=== PATIENT | male | born 1960 | race Caucasian/White ===

== ENCOUNTER 2018-12-03 16:50 | Emergency (ER) | payer OTHER, MEDICAID ==
[~2018-12-03] VITALS: Ht 162.6 cm; Wt 70.3 kg
[~2018-12-03 16:50] MED LIST: AMOX-423 PO; CALC-112 PO; FERR-57 PO; GUAI-818 PO; HYT1 PO; IBUP-2253 PO; LACT10SO66 PO; LEVE100S2 PO; LORA10TA2 PO; MULT-1170 PO; NEOM500T PO; OXYB5TAB11 PO
[2018-12-03 17:36] VITALS: BP_SYST 144
[2018-12-03 18:29] LABS: HEMOGLOBIN 12.2 g/dL (14.0-18.0); MEAN CORPUSCULAR HGB CONC 33 % (32-36)
[2018-12-03 18:41] LABS: HEMATOCRIT 37.3 % (36-54); MEAN CORPUSCULAR HEMOGLOBIN 34 pg (27-31); MEAN CORPUSCULAR VOLUME 103 fL (79.0-98.0); PLATELET COUNT (AUTO) 95 K/uL (130-430); RED BLOOD CELL COUNT(AUTO) 3.64 MIL/uL (4.2-6.2); RED CELL DISTRIBUTION WIDTH 14.1 % (9.0-15.0); WHITE BLOOD COUNT (AUTO) 6.7 K/uL (4.8-10.8)
[2018-12-03 18:55] LABS: BAND % (MANUAL) 7 % (0-6); BASOPHILS % (MANUAL) 0 % (0-2); EOSINOPHILS % (MANUAL) 0 % (0-7); LYMPHOCYTES % (MANUAL) 30 % (20-46); MONOCYTES % (MANUAL) 21 % (0-11)
[2018-12-03 19:12] LABS: CALCIUM 9.5 mg/dL (8.4-11.0); CREATININE 0.98 mg/dL (0.55-1.30); POTASSIUM 4.5 mmol/L (3.5-5.1)
[2018-12-03 19:27] LABS: TOTAL BILIRUBIN 0.3 mg/dL (0.0-1.0)
[2018-12-03 19:39] LABS: INR 1.1 (0.80-1.20)
--- NOTE | 2018-12-03 19:54 | NUR ---
Placed in room 2 . Placed on threat monitoring analyst, blood pressure machine and pulse oximeter. To gown for exam. Side rails up. Report given to Elise ORTEZ.Seizure precaution applied.
--- NOTE | 2018-12-03 20:00 | NUR ---
2000 - Assumed care of pt. Per caregiver, pt has 1 seizure a day, today he fell back and hit head on dresser. Pt has large 6 cm lac to back of head, bleeding controlled. Wound cleaned and stapler at bedside for doctor.
--- NOTE | 2018-12-03 21:01 | NUR ---
2101 - ER at bedside examining patient.
--- NOTE | 2018-12-03 21:10 | NUR ---
2109 - Patient given written and verbal discharge instructions and verbalizes understanding. ER MD discussed with patient the results and treatment provided. Patient in stable condition. ID arm band removed. Rx of motrin given. Patient educated on pain management and to follow up with PMD. Pain Scale 0. Opportunity for questions provided and answered. Medication side effect fact sheet provided.
[2018-12-03 21:11] VITALS: BP_SYST 144
== END 2018-12-03 21:11 | disposition home or self-care (01) ==
LOC: SED 16:50
DX: S01.01XA Laceration without foreign body of scalp, initial encounter (principal); R03.0 Elevated blood-pressure reading, without diagnosis of hypertension; N40.0 Benign prostatic hyperplasia without lower urinary tract symptoms; Z86.2 Personal history of diseases of the blood and blood-forming organs and certain disorders involving the immune mechanism; Z95.0 Presence of cardiac pacemaker; Z88.8 Allergy status to other drugs, medicaments and biological substances; Z79.899 Other long term (current) drug therapy; W01.198A Fall on same level from slipping, tripping and stumbling with subsequent striking against other object, initial encounter; Y93.89 Activity, other specified; Y92.89 Other specified places as the place of occurrence of the external cause; Y99.8 Other external cause status
CPT/HCPCS: 36415; 70450-TC; 80053; 85007; 85027; 85610-TC; 85730-TC; 99284

== ENCOUNTER 2019-05-22 09:03 | Emergency (ER) | payer OTHER, MEDICAID ==
[~2019-05-22] VITALS: Ht 162.6 cm; Wt 65.8 kg
[~2019-05-22 09:03] MED LIST changes: +GUAI-1081 PO; -GUAI-818 PO; -IBUP-2253 PO; +IBUP-2604 PO
[2019-05-22 09:04] VITALS: BP_SYST 121
[2019-05-22] MEDS: ONDANSETRON HCL 4 MG/2 ML VIAL IVP ONE (09:47)
[2019-05-22] MEDS: NACL 0.9% 1,000 ML IV ONE (09:47)
[2019-05-22] MEDS: DIPHENOXYLATE HCL/ATROP SULF 2.5 MG TAB PO ONE (09:48)
[2019-05-22 11:26] LABS: BASOPHILS % (AUTO) 0.4 % (0.0-2.0); EOSINOPHILS % (AUTO) 0.1 % (0.0-4.0); HEMATOCRIT 38.5 % (36-54); LYMPHOCYTES # (AUTO) 1.8 K/uL (1.0-5.5); LYMPHOCYTES % (AUTO) 16.6 % (20.5-51.5); MEAN CORPUSCULAR HEMOGLOBIN 34 pg (27-31); MEAN CORPUSCULAR HGB CONC 34 % (32-36); MEAN CORPUSCULAR VOLUME 101 fL (79.0-98.0); MONOCYTES # (AUTO) 1.9 K/uL (0.0-1.0); MONOCYTES % (AUTO) 17.9 % (1.7-9.3); NEUTROPHILS # (AUTO) 6.9 K/uL (1.8-7.7); PLATELET COUNT (AUTO) 79 K/uL (130-430); RED BLOOD CELL COUNT(AUTO) 3.81 MIL/uL (4.2-6.2); RED CELL DISTRIBUTION WIDTH 14.7 % (9.0-15.0); WHITE BLOOD COUNT (AUTO) 10.6 K/uL (4.8-10.8)
[2019-05-22 11:44] LABS: CALCIUM 8.9 mg/dL (8.4-11.0); CREATININE 0.77 mg/dL (0.55-1.30); POTASSIUM 3.1 mmol/L (3.5-5.1)
[2019-05-22 11:54] LABS: ALBUMIN 2.7 g/dL (3.4-4.8); TOTAL BILIRUBIN 0.8 mg/dL (0.0-1.0)
[2019-05-22] MEDS: POTASSIUM CHLORIDE 20 MEQ TAB.PRT.SR PO ONE (12:36)
[2019-05-22 12:59] VITALS: BP_SYST 107
== END 2019-05-22 13:02 | disposition home or self-care (01) ==
LOC: SED 09:03
DX: K52.9 Noninfective gastroenteritis and colitis, unspecified (principal); N40.0 Benign prostatic hyperplasia without lower urinary tract symptoms; Z86.2 Personal history of diseases of the blood and blood-forming organs and certain disorders involving the immune mechanism; Z88.8 Allergy status to other drugs, medicaments and biological substances; Z79.899 Other long term (current) drug therapy
CPT/HCPCS: 36415; 80053; 83690; 85025; 96361; 96374; 99283; J2405; J7030

== ENCOUNTER 2019-05-25 10:02 | Inpatient (IN) | payer OTHER, MEDICAID ==
[~2019-05-25] VITALS: Ht 167.6 cm; Wt 71.7 kg
[2019-05-25 10:36] VITALS: BP_SYST 133
[2019-05-25] MEDS ORDERED: PIPERACILLIN/TAZO 3.38 GM in NS 50 ML IV ONE (10:45)
[2019-05-25 11:15] LABS: BASOPHILS # (AUTO) 0.1 K/uL (0.0-0.2); BASOPHILS % (AUTO) 0.5 % (0.0-2.0); HEMATOCRIT 39.1 % (36-54); HEMOGLOBIN 13.1 g/dL (14.0-18.0); LYMPHOCYTES # (AUTO) 2.8 K/uL (1.0-5.5); MEAN CORPUSCULAR HEMOGLOBIN 34 pg (27-31); MEAN CORPUSCULAR HGB CONC 34 % (32-36); MEAN CORPUSCULAR VOLUME 101 fL (79.0-98.0); MONOCYTES # (AUTO) 2.7 K/uL (0.0-1.0); MONOCYTES % (AUTO) 13.5 % (1.7-9.3); NEUTROPHILS # (AUTO) 14.2 K/uL (1.8-7.7); PLATELET COUNT (AUTO) 117 K/uL (130-430); RED BLOOD CELL COUNT(AUTO) 3.88 MIL/uL (4.2-6.2); RED CELL DISTRIBUTION WIDTH 14.7 % (9.0-15.0); WHITE BLOOD COUNT (AUTO) 19.7 K/uL (4.8-10.8)
[2019-05-25 11:28] LABS: INR 1.2 (0.80-1.20)
[2019-05-25 11:29] LABS: CALCIUM 9.1 mg/dL (8.4-11.0); CREATININE 1.11 mg/dL (0.55-1.30); POTASSIUM 3.2 mmol/L (3.5-5.1)
[2019-05-25 11:38] LABS: ALBUMIN 2.5 g/dL (3.4-4.8)
[2019-05-25] MEDS ORDERED: PIPERACILLIN/TAZOBACTAM 3.375 GM/VIAL (ZOSYN) IV ONE (11:41)
[2019-05-25 12:21] LABS: BILIRUBIN,URINE 1+ (NEGATIVE); BLOOD, URINE 3+ (NEGATIVE); CLARITY/URINE CLOUDY (CLEAR); COLOR,URINE YELLOW (YELLOW); GLUCOSE,URINE NEGATIVE (NEGATIVE); KETONES,URINE TRACE (NEGATIVE); LEUKOCYTE ESTERASE ,URINE 2+ (NEGATIVE); NITRITE, URINE POSITIVE (NEGATIVE); PH,URINE 6.5 (5.0-8.0); PROTEIN URINE 3+ (NEGATIVE); UROBILINOGEN,URINE 0.2 (0.2-1.0)
[2019-05-25 12:27] LABS: BACTERIA,URINE MODERATE /HPF (None Seen); MUCUS,URINE None Seen /LPF (None Seen); WBC,URINE >100 /HPF (0-3); YEAST,URINE None Seen /HPF (None Seen)
[2019-05-25] MEDS ORDERED: POTASSIUM CHLORIDE 40 MEQ in NS 250 ML IV ONE (12:45)
[2019-05-25] MEDS ORDERED: NACL 0.9% 1,000 ML IV ONE (12:45)
[2019-05-25] MEDS ORDERED: IBUPROFEN 200 MG TABLET PO PRN (14:30)
[2019-05-25] MEDS ORDERED: FERROUS SULFATE 325 MG TABLET.DR PO ONE (14:30)
[2019-05-25] MEDS ORDERED: LORazepam 2 MG/ML VIAL IVP PRN (14:30)
[2019-05-25] MEDS: OXYBUTYNIN CHLORIDE 5 MG TABLET PO SCH ×2 (15:00→21:22)
[2019-05-25] MEDS: LR 1,000 ML IV SCH ×2 (15:00→23:33)
[2019-05-25] MEDS: LACTULOSE 20 GM/30 ML UDC PO SCH ×2 (15:00→21:00)
[2019-05-25] MEDS ORDERED: LACO200T2 PO (15:29)
[2019-05-25] MEDS ORDERED: CANN100S PO (15:29)
[2019-05-25] MEDS ORDERED: TAMS-11 PO (15:29)
[2019-05-25] MEDS ORDERED: DIVA500T4 PO (15:29)
[2019-05-25 16:32] VITALS: BP_SYST 128
[2019-05-25 19:00] VITALS: BP_SYST 136
[2019-05-25] MEDS: CANNABIDIOL PO SCH (21:00)
[2019-05-25] MEDS ORDERED: DIVALPROEX SODIUM 500 MG TAB.SR.24H (DEPAKOTE ER) PO ONE (21:00)
[2019-05-25] MEDS: LACOSAMIDE 100 MG TABLET PO SCH (21:22)
[2019-05-25] MEDS: LevETIRAcetam 500 MG/5 ML UDC ORAL LIQUID PO SCH (21:22)
[2019-05-25] MEDS: CALCIUM CARBONATE/VITAMIN D3 1 TAB TABLET PO SCH (21:23)
[2019-05-25] MEDS: TERAZOSIN HCL 1 MG CAPSULE (HYTRIN) PO SCH (21:23)
[2019-05-26 01:07] VITALS: BP_SYST 120
[2019-05-26 06:54] LABS: BASOPHILS % (AUTO) 0.1 % (0.0-2.0); HEMATOCRIT 32.6 % (36-54); HEMOGLOBIN 11.1 g/dL (14.0-18.0); LYMPHOCYTES # (AUTO) 2.6 K/uL (1.0-5.5); LYMPHOCYTES % (AUTO) 17.4 % (20.5-51.5); MEAN CORPUSCULAR HEMOGLOBIN 34 pg (27-31); MEAN CORPUSCULAR HGB CONC 34 % (32-36); MEAN CORPUSCULAR VOLUME 101 fL (79.0-98.0); MONOCYTES # (AUTO) 2.2 K/uL (0.0-1.0); MONOCYTES % (AUTO) 14.5 % (1.7-9.3); NEUTROPHILS # (AUTO) 10.2 K/uL (1.8-7.7); PLATELET COUNT (AUTO) 75 K/uL (130-430); RED BLOOD CELL COUNT(AUTO) 3.24 MIL/uL (4.2-6.2); RED CELL DISTRIBUTION WIDTH 14.7 % (9.0-15.0)
[2019-05-26 07:25] LABS: ALBUMIN 1.9 g/dL (3.4-4.8); CALCIUM 8.8 mg/dL (8.4-11.0); CREATININE 0.86 mg/dL (0.55-1.30); FREE T4 (FREE THYROXINE) 1.2 ng/dl (0.8-1.5); TOTAL BILIRUBIN 0.6 mg/dL (0.0-1.0)
[2019-05-26 08:00] VITALS: BP_SYST 110
[2019-05-26] MEDS: CANNABIDIOL PO SCH (09:00)
[2019-05-26] MEDS: FERROUS SULFATE 325 MG TABLET.DR PO SCH (10:15)
[2019-05-26] MEDS: MULTIVITS,CA,MINERALS/IRON/FA 1 TABLET PO SCH (10:15)
[2019-05-26] MEDS: LACOSAMIDE 100 MG TABLET PO SCH ×2 (10:15→20:39)
[2019-05-26] MEDS: LORATADINE 10 MG TABLET PO SCH (10:16)
[2019-05-26] MEDS: OXYBUTYNIN CHLORIDE 5 MG TABLET PO SCH ×3 (10:16→20:37)
[2019-05-26] MEDS: TAMSULOSIN HCL 0.4 MG CAP PO SCH (10:16)
[2019-05-26] MEDS: LACTULOSE 20 GM/30 ML UDC PO SCH ×3 (10:21→20:37)
[2019-05-26] MEDS: CALCIUM CARBONATE/VITAMIN D3 1 TAB TABLET PO SCH ×2 (10:22→20:38)
[2019-05-26] MEDS: LevETIRAcetam 500 MG/5 ML UDC ORAL LIQUID PO SCH ×2 (10:22→20:38)
[2019-05-26 11:20] VITALS: BP_SYST 107
[2019-05-26 11:32] LABS: THYROID STIMULATING HORMONE 2.13 uIu/mL (0.36-3.74)
[2019-05-26] MEDS ORDERED: PANTOPRAZOLE SODIUM 40 MG TAB PO ONE (12:15)
[2019-05-26] MEDS: KCL 40 mEq in D5W 1000 mL 1,000 ML IV SCH (13:00)
[2019-05-26 17:53] VITALS: BP_SYST 111
[2019-05-26 19:00] VITALS: BP_SYST 137
[2019-05-26 20:00] VITALS: BP_SYST 137
[2019-05-26] MEDS: DIVALPROEX SODIUM 500 MG TAB.SR.24H (DEPAKOTE ER) PO SCH ×2 (20:36→20:39)
[2019-05-26] MEDS: PANTOPRAZOLE SODIUM 40 MG TAB PO SCH (20:38)
[2019-05-26] MEDS: TERAZOSIN HCL 1 MG CAPSULE (HYTRIN) PO SCH (20:38)
[2019-05-26] MEDS: DIVALPROEX SODIUM 500 MG TABLET( DEPAKOTE) PO SCH (21:13)
[2019-05-27 00:59] VITALS: BP_SYST 124
[2019-05-27] MEDS: KCL 40 mEq in D5W 1000 mL 1,000 ML IV SCH ×3 (02:18→19:22)
[2019-05-27 07:58] LABS: BASOPHILS # (AUTO) 0.1 K/uL (0.0-0.2); BASOPHILS % (AUTO) 0.4 % (0.0-2.0); EOSINOPHILS % (AUTO) 0.1 % (0.0-4.0); HEMATOCRIT 31.3 % (36-54); HEMOGLOBIN 10.7 g/dL (14.0-18.0); LYMPHOCYTES # (AUTO) 2.3 K/uL (1.0-5.5); LYMPHOCYTES % (AUTO) 17.2 % (20.5-51.5); MEAN CORPUSCULAR HEMOGLOBIN 34 pg (27-31); MEAN CORPUSCULAR HGB CONC 34 % (32-36); MEAN CORPUSCULAR VOLUME 100 fL (79.0-98.0); MONOCYTES # (AUTO) 1.9 K/uL (0.0-1.0); MONOCYTES % (AUTO) 13.7 % (1.7-9.3); NEUTROPHILS # (AUTO) 9.3 K/uL (1.8-7.7); NEUTROPHILS % (AUTO) 68.6 % (40.0-70.0); PLATELET COUNT (AUTO) 70 K/uL (130-430); RED BLOOD CELL COUNT(AUTO) 3.12 MIL/uL (4.2-6.2); RED CELL DISTRIBUTION WIDTH 14.7 % (9.0-15.0); WHITE BLOOD COUNT (AUTO) 13.5 K/uL (4.8-10.8)
[2019-05-27 08:00] VITALS: BP_SYST 146
[2019-05-27 08:21] LABS: ALBUMIN 1.7 g/dL (3.4-4.8); CALCIUM 8.2 mg/dL (8.4-11.0); CREATININE 0.77 mg/dL (0.55-1.30); TOTAL BILIRUBIN 0.5 mg/dL (0.0-1.0)
[2019-05-27 08:23] LABS: POTASSIUM 2.8 mmol/L (3.5-5.1)
[2019-05-27] MEDS: LACOSAMIDE 100 MG TABLET PO SCH ×2 (08:58→20:49)
[2019-05-27] MEDS: MULTIVITS,CA,MINERALS/IRON/FA 1 TABLET PO SCH (08:58)
[2019-05-27] MEDS: PANTOPRAZOLE SODIUM 40 MG TAB PO SCH ×2 (08:58→20:50)
[2019-05-27] MEDS: LORATADINE 10 MG TABLET PO SCH (08:58)
[2019-05-27] MEDS: TAMSULOSIN HCL 0.4 MG CAP PO SCH (08:59)
[2019-05-27] MEDS: LACTULOSE 20 GM/30 ML UDC PO SCH ×3 (08:59→20:49)
[2019-05-27] MEDS: CALCIUM CARBONATE/VITAMIN D3 1 TAB TABLET PO SCH ×2 (08:59→20:49)
[2019-05-27] MEDS: FERROUS SULFATE 325 MG TABLET.DR PO SCH (08:59)
[2019-05-27] MEDS: OXYBUTYNIN CHLORIDE 5 MG TABLET PO SCH ×3 (08:59→20:50)
[2019-05-27] MEDS: CANNABIDIOL PO SCH ×2 (09:00→20:52)
[2019-05-27] MEDS: DIVALPROEX SODIUM 500 MG TABLET( DEPAKOTE) PO SCH ×2 (09:03→20:49)
[2019-05-27] MEDS: LevETIRAcetam 500 MG/5 ML UDC ORAL LIQUID PO SCH ×2 (09:03→21:00)
[2019-05-27] MEDS ORDERED: POTASSIUM CHLORIDE 20 MEQ TAB.PRT.SR PO ONE (10:00)
[2019-05-27] MEDS ORDERED: POTASSIUM CHLORIDE 40 MEQ, LIDOCAINE JECT 2% PF 100 MG 50 MG in NS 250 ML IV ONE (10:30)
[2019-05-27 12:00] VITALS: BP_SYST 141
[2019-05-27 16:59] VITALS: BP_SYST 136
[2019-05-27] MEDS: cefTRIAXone 1 GM in D5W 50 ML IV SCH (19:16)
[2019-05-27 20:00] VITALS: BP_SYST 136
[2019-05-27] MEDS: TERAZOSIN HCL 1 MG CAPSULE (HYTRIN) PO SCH (20:50)
[2019-05-27] MEDS: POTASSIUM CHLORIDE 20 MEQ TAB.PRT.SR PO SCH (20:51)
[2019-05-27] MEDS ORDERED: levETIRAcetam 500 MG TABLET ONE (20:55)
[2019-05-28 02:18] VITALS: BP_SYST 136
[2019-05-28 06:56] LABS: BASOPHILS # (AUTO) 0.1 K/uL (0.0-0.2); BASOPHILS % (AUTO) 0.4 % (0.0-2.0); EOSINOPHILS % (AUTO) 0.2 % (0.0-4.0); HEMATOCRIT 31.9 % (36-54); HEMOGLOBIN 10.7 g/dL (14.0-18.0); LYMPHOCYTES # (AUTO) 3.6 K/uL (1.0-5.5); LYMPHOCYTES % (AUTO) 27.8 % (20.5-51.5); MEAN CORPUSCULAR HEMOGLOBIN 34 pg (27-31); MEAN CORPUSCULAR HGB CONC 34 % (32-36); MEAN CORPUSCULAR VOLUME 102 fL (79.0-98.0); MONOCYTES # (AUTO) 1.9 K/uL (0.0-1.0); MONOCYTES % (AUTO) 14.6 % (1.7-9.3); NEUTROPHILS # (AUTO) 7.4 K/uL (1.8-7.7); RED BLOOD CELL COUNT(AUTO) 3.13 MIL/uL (4.2-6.2); RED CELL DISTRIBUTION WIDTH 14.9 % (9.0-15.0)
[2019-05-28 07:11] LABS: TOTAL IRON BIND. CAPACITY 108 ug/dL (250-450)
[2019-05-28 07:16] LABS: ALBUMIN 1.6 g/dL (3.4-4.8); CALCIUM 8.2 mg/dL (8.4-11.0); CREATININE 0.8 mg/dL (0.55-1.30); POTASSIUM 4.1 mmol/L (3.5-5.1); TOTAL BILIRUBIN 0.6 mg/dL (0.0-1.0)
[2019-05-28 08:03] LABS: PLATELET COUNT (AUTO) 59 K/uL (130-430)
[2019-05-28 08:11] VITALS: BP_SYST 126
[2019-05-28 08:16] VITALS: BP_SYST 126
[2019-05-28] MEDS: FERROUS SULFATE 325 MG TABLET.DR PO SCH ×2 (09:00→09:48)
[2019-05-28] MEDS: LACTULOSE 20 GM/30 ML UDC PO SCH ×3 (09:00→14:16)
[2019-05-28] MEDS: LORATADINE 10 MG TABLET PO SCH ×2 (09:00→09:51)
[2019-05-28] MEDS: POTASSIUM CHLORIDE 20 MEQ TAB.PRT.SR PO SCH (09:28)
[2019-05-28] MEDS: CALCIUM CARBONATE/VITAMIN D3 1 TAB TABLET PO SCH ×2 (09:30→22:12)
[2019-05-28] MEDS: CANNABIDIOL PO SCH ×2 (09:34→22:10)
[2019-05-28] MEDS: PANTOPRAZOLE SODIUM 40 MG TAB PO SCH ×2 (09:35→22:11)
[2019-05-28] MEDS: MULTIVITS,CA,MINERALS/IRON/FA 1 TABLET PO SCH (09:36)
[2019-05-28] MEDS: DIVALPROEX SODIUM 500 MG TABLET( DEPAKOTE) PO SCH ×2 (09:47→22:11)
[2019-05-28] MEDS: LACOSAMIDE 100 MG TABLET PO SCH ×2 (09:50→22:11)
[2019-05-28] MEDS: TAMSULOSIN HCL 0.4 MG CAP PO SCH (09:51)
[2019-05-28] MEDS: OXYBUTYNIN CHLORIDE 5 MG TABLET PO SCH ×3 (10:06→22:11)
[2019-05-28] MEDS: LevETIRAcetam 500 MG/5 ML UDC ORAL LIQUID PO SCH ×2 (10:34→22:09)
[2019-05-28] MEDS: KCL 40 mEq in D5W 1000 mL 1,000 ML IV SCH (11:27)
[2019-05-28 12:44] VITALS: BP_SYST 122
[2019-05-28 16:53] VITALS: BP_SYST 127
[2019-05-28] MEDS: cefTRIAXone 1 GM in D5W 50 ML IV SCH (17:38)
[2019-05-28 20:00] VITALS: BP_SYST 122
[2019-05-28] MEDS: TERAZOSIN HCL 1 MG CAPSULE (HYTRIN) PO SCH (22:11)
[2019-05-28] MEDS: NITROFURANTOIN MONOHYD/M-CRYST 100 MG CAPSULE PO SCH (22:12)
[2019-05-29] MEDS: KCL 40 mEq in D5W 1000 mL 1,000 ML IV SCH (00:50)
[2019-05-29 01:40] VITALS: BP_SYST 107
[2019-05-29 07:19] LABS: BASOPHILS % (AUTO) 0.3 % (0.0-2.0); EOSINOPHILS # (AUTO) 0.1 K/uL (0.0-0.4); EOSINOPHILS % (AUTO) 0.9 % (0.0-4.0); HEMATOCRIT 32.6 % (36-54); HEMOGLOBIN 10.9 g/dL (14.0-18.0); LYMPHOCYTES # (AUTO) 3.1 K/uL (1.0-5.5); LYMPHOCYTES % (AUTO) 26.8 % (20.5-51.5); MEAN CORPUSCULAR HEMOGLOBIN 34 pg (27-31); MEAN CORPUSCULAR HGB CONC 34 % (32-36); MEAN CORPUSCULAR VOLUME 102 fL (79.0-98.0); MONOCYTES # (AUTO) 2.1 K/uL (0.0-1.0); MONOCYTES % (AUTO) 18.4 % (1.7-9.3); NEUTROPHILS # (AUTO) 6.3 K/uL (1.8-7.7); NEUTROPHILS % (AUTO) 53.6 % (40.0-70.0); PLATELET COUNT (AUTO) 51 K/uL (130-430); RED BLOOD CELL COUNT(AUTO) 3.19 MIL/uL (4.2-6.2); RED CELL DISTRIBUTION WIDTH 14.7 % (9.0-15.0); WHITE BLOOD COUNT (AUTO) 11.7 K/uL (4.8-10.8)
[2019-05-29 08:26] VITALS: BP_SYST 115
[2019-05-29] MEDS: DIVALPROEX SODIUM 500 MG TABLET( DEPAKOTE) PO SCH ×2 (08:52→20:56)
[2019-05-29] MEDS: LACOSAMIDE 100 MG TABLET PO SCH ×2 (08:53→20:56)
[2019-05-29] MEDS: NITROFURANTOIN MONOHYD/M-CRYST 100 MG CAPSULE PO SCH ×2 (08:53→20:55)
[2019-05-29] MEDS: LevETIRAcetam 500 MG/5 ML UDC ORAL LIQUID PO SCH ×2 (08:54→20:55)
[2019-05-29] MEDS: OXYBUTYNIN CHLORIDE 5 MG TABLET PO SCH ×3 (08:54→20:56)
[2019-05-29] MEDS ORDERED: POTASSIUM CHLORIDE 20 MEQ TAB.PRT.SR PO SCH (09:00)
[2019-05-29] MEDS: CALCIUM CARBONATE/VITAMIN D3 1 TAB TABLET PO SCH ×2 (09:00→20:56)
[2019-05-29] MEDS: TAMSULOSIN HCL 0.4 MG CAP PO SCH (09:00)
[2019-05-29] MEDS: CANNABIDIOL PO SCH ×2 (09:18→20:57)
[2019-05-29 09:39] LABS: POTASSIUM 5.4 mmol/L (3.5-5.1)
[2019-05-29 09:40] LABS: CALCIUM 8.3 mg/dL (8.4-11.0); CREATININE 0.7 mg/dL (0.55-1.30)
[2019-05-29 12:47] VITALS: BP_SYST 102
[2019-05-29 14:36] LABS: CALCIUM 8.4 mg/dL (8.4-11.0); CREATININE 0.73 mg/dL (0.55-1.30); POTASSIUM 5.2 mmol/L (3.5-5.1)
[2019-05-29] MEDS: PANTOPRAZOLE SODIUM 40 MG TAB PO SCH ×2 (15:28→20:56)
[2019-05-29] MEDS: FERROUS SULFATE 325 MG TABLET.DR PO SCH (15:28)
[2019-05-29] MEDS: LORATADINE 10 MG TABLET PO SCH (15:28)
[2019-05-29] MEDS: MULTIVITS,CA,MINERALS/IRON/FA 1 TABLET PO SCH (15:29)
[2019-05-29] MEDS ORDERED: MEGESTROL ACETATE 400 MG/10 ML UDC PO ONE (16:30)
[2019-05-29 16:55] VITALS: BP_SYST 92
[2019-05-29] MEDS: D5/0.45 NS 1,000 ML IV SCH (17:06)
[2019-05-29] MEDS: cefTRIAXone 1 GM in D5W 50 ML IV SCH (17:36)
[2019-05-29 20:00] VITALS: BP_SYST 114
[2019-05-29] MEDS: TERAZOSIN HCL 1 MG CAPSULE (HYTRIN) PO SCH (20:57)
[2019-05-30 00:26] VITALS: BP_SYST 99
[2019-05-30 06:41] LABS: BASOPHILS % (AUTO) 0.3 % (0.0-2.0); EOSINOPHILS # (AUTO) 0.1 K/uL (0.0-0.4); HEMATOCRIT 31.2 % (36-54); HEMOGLOBIN 10.6 g/dL (14.0-18.0); LYMPHOCYTES % (AUTO) 28.9 % (20.5-51.5); MEAN CORPUSCULAR HEMOGLOBIN 35 pg (27-31); MEAN CORPUSCULAR HGB CONC 34 % (32-36); MEAN CORPUSCULAR VOLUME 102 fL (79.0-98.0); MONOCYTES # (AUTO) 1.4 K/uL (0.0-1.0); MONOCYTES % (AUTO) 13.8 % (1.7-9.3); NEUTROPHILS # (AUTO) 5.8 K/uL (1.8-7.7); RED BLOOD CELL COUNT(AUTO) 3.06 MIL/uL (4.2-6.2); RED CELL DISTRIBUTION WIDTH 14.7 % (9.0-15.0); WHITE BLOOD COUNT (AUTO) 10.3 K/uL (4.8-10.8)
[2019-05-30] MEDS: D5/0.45 NS 1,000 ML IV SCH ×2 (06:51→21:00)
[2019-05-30 06:55] LABS: ALANINE AMINOTRANSFERASE 10 U/L (12-78); ALBUMIN 1.6 g/dL (3.4-4.8); ASPARTATE AMINOTRANSFERASE 14 U/L (10-37); CHLORIDE 111 mmol/L (98-107); CREATININE 0.75 mg/dL (0.55-1.30); GLUCOSE 105 mg/dL (70-99); POTASSIUM 4.8 mmol/L (3.5-5.1); TOTAL BILIRUBIN 0.5 mg/dL (0.0-1.0); UREA NITROGEN, BLOOD 19 mg/dL (8-21)
[2019-05-30 06:57] LABS: GFR AFRICAN AMERICAN 137 mL/min (>90)
[2019-05-30 07:04] LABS: CALCIUM 8.3 mg/dL (8.4-11.0); SODIUM SERUM 141 mmol/L (136-145)
[2019-05-30 07:07] LABS: ANION GAP < 3 (5-15)
[2019-05-30 07:15] LABS: PLATELET COUNT (AUTO) 46 K/uL (130-430)
[2019-05-30 07:52] VITALS: BP_SYST 105
[2019-05-30] MEDS: LevETIRAcetam 500 MG/5 ML UDC ORAL LIQUID PO SCH ×2 (09:00→20:50)
[2019-05-30] MEDS: CANNABIDIOL PO SCH ×3 (09:00→18:10)
[2019-05-30] MEDS: MEGESTROL ACETATE 400 MG/10 ML UDC PO SCH (10:12)
[2019-05-30] MEDS: CALCIUM CARBONATE/VITAMIN D3 1 TAB TABLET PO SCH ×2 (10:12→20:48)
[2019-05-30] MEDS: NITROFURANTOIN MONOHYD/M-CRYST 100 MG CAPSULE PO SCH ×2 (10:12→20:50)
[2019-05-30] MEDS: PANTOPRAZOLE SODIUM 40 MG TAB PO SCH ×2 (10:12→20:48)
[2019-05-30] MEDS: OXYBUTYNIN CHLORIDE 5 MG TABLET PO SCH ×3 (10:13→20:48)
[2019-05-30] MEDS: LACOSAMIDE 100 MG TABLET PO SCH ×2 (10:13→20:48)
[2019-05-30] MEDS: FERROUS SULFATE 325 MG TABLET.DR PO SCH (10:13)
[2019-05-30] MEDS: MULTIVITS,CA,MINERALS/IRON/FA 1 TABLET PO SCH (10:13)
[2019-05-30] MEDS: TAMSULOSIN HCL 0.4 MG CAP PO SCH ×2 (10:13→20:49)
[2019-05-30] MEDS: DIVALPROEX SODIUM 500 MG TABLET( DEPAKOTE) PO SCH ×2 (10:14→20:48)
[2019-05-30] MEDS: LORATADINE 10 MG TABLET PO SCH (10:15)
[2019-05-30] MEDS ORDERED: CIPROFLOXACIN HCL 500 MG TABLET PO ONE ×2 (11:15→12:15)
[2019-05-30 11:44] VITALS: BP_SYST 115
[2019-05-30] MEDS ORDERED: TAMSULOSIN HCL 0.4 MG CAP PO ONE (12:00)
[2019-05-30] MEDS ORDERED: OXYBUTYNIN CHLORIDE 5 MG TABLET PO ONE (12:15)
[2019-05-30] MEDS ORDERED: DIVALPROEX SODIUM 500 MG TABLET( DEPAKOTE) PO ONE (12:15)
[2019-05-30] MEDS ORDERED: LevETIRAcetam 500 MG/5 ML UDC ORAL LIQUID PO ONE (12:15)
[2019-05-30] MEDS ORDERED: NITROFURANTOIN MONOHYD/M-CRYST 100 MG CAPSULE PO ONE (12:15)
[2019-05-30] MEDS ORDERED: CANNABIDIOL PO ONE (12:15)
[2019-05-30] MEDS ORDERED: CALCIUM CARBONATE/VITAMIN D3 1 TAB TABLET PO ONE (12:15)
[2019-05-30] MEDS ORDERED: MEGESTROL ACETATE 400 MG/10 ML UDC PO ONE (12:15)
[2019-05-30] MEDS ORDERED: PANTOPRAZOLE SODIUM 40 MG TAB PO ONE (12:15)
[2019-05-30] MEDS ORDERED: LORATADINE 10 MG TABLET PO ONE (12:15)
[2019-05-30] MEDS ORDERED: FERROUS SULFATE 325 MG TABLET.DR PO ONE (12:15)
[2019-05-30] MEDS ORDERED: MULTIVITS,CA,MINERALS/IRON/FA 1 TABLET PO ONE (12:15)
[2019-05-30] MEDS ORDERED: LACOSAMIDE 100 MG TABLET PO ONE (12:15)
[2019-05-30 16:20] VITALS: BP_SYST 109
[2019-05-30 16:37] LABS: RETICULOCYTE COUNT 0.9 % (0.5-1.5)
[2019-05-30 17:02] LABS: C-REACTIVE PROTEIN QUANT 5.7 mg/dL (0-0.5)
[2019-05-30 18:04] LABS: INR 1.1 (0.80-1.20); PROTHROMBIN TIME 11.5 SECS (9.5-12.5)
[2019-05-30 19:50] VITALS: BP_SYST 113
[2019-05-30] MEDS: TERAZOSIN HCL 1 MG CAPSULE (HYTRIN) PO SCH (20:49)
[2019-05-30] MEDS ORDERED: COMMUNICATION ORDER XX ONE (21:00)
[2019-05-30] MEDS: CIPROFLOXACIN HCL 500 MG TABLET PO SCH (21:00)
[2019-05-31 00:58] VITALS: BP_SYST 100
[2019-05-31 01:41] LABS: BILIRUBIN,URINE NEGATIVE (NEGATIVE); BLOOD, URINE NEGATIVE (NEGATIVE); CLARITY/URINE CLEAR (CLEAR); COLOR,URINE YELLOW (YELLOW); GLUCOSE,URINE NEGATIVE (NEGATIVE); KETONES,URINE TRACE (NEGATIVE); LEUKOCYTE ESTERASE ,URINE 1+ (NEGATIVE); NITRITE, URINE NEGATIVE (NEGATIVE); PROTEIN URINE NEGATIVE (NEGATIVE)
[2019-05-31 01:52] LABS: BACTERIA,URINE FEW /HPF (None Seen); RBC,URINE 0-3 /HPF (0-3)
[2019-05-31 07:06] LABS: HEPATITIS A AB, IgM Negative (Negative); HEPATITIS B CORE AB, IgM Negative (Negative); HEPATITIS B SURFACE AG Negative (Negative)
[2019-05-31 08:29] VITALS: BP_SYST 111
[2019-05-31 08:33] LABS: FOLATE (FOLIC ACID) 12.7 ng/mL (>3.0)
[2019-05-31] MEDS: NITROFURANTOIN MONOHYD/M-CRYST 100 MG CAPSULE PO SCH (09:52)
[2019-05-31] MEDS: CALCIUM CARBONATE/VITAMIN D3 1 TAB TABLET PO SCH ×2 (09:52→23:11)
[2019-05-31] MEDS: LACOSAMIDE 100 MG TABLET PO SCH ×2 (09:52→23:10)
[2019-05-31] MEDS: OXYBUTYNIN CHLORIDE 5 MG TABLET PO SCH ×3 (09:52→23:10)
[2019-05-31] MEDS: MULTIVITS,CA,MINERALS/IRON/FA 1 TABLET PO SCH (09:55)
[2019-05-31] MEDS: LORATADINE 10 MG TABLET PO SCH (09:56)
[2019-05-31] MEDS: DIVALPROEX SODIUM 500 MG TABLET( DEPAKOTE) PO SCH ×2 (09:56→23:09)
[2019-05-31] MEDS: FERROUS SULFATE 325 MG TABLET.DR PO SCH (09:56)
[2019-05-31] MEDS: CIPROFLOXACIN HCL 500 MG TABLET PO SCH ×2 (09:56→23:10)
[2019-05-31] MEDS: TAMSULOSIN HCL 0.4 MG CAP PO SCH ×2 (09:56→23:11)
[2019-05-31] MEDS: PANTOPRAZOLE SODIUM 40 MG TAB PO SCH ×2 (09:56→23:03)
[2019-05-31] MEDS: MEGESTROL ACETATE 400 MG/10 ML UDC PO SCH (09:56)
[2019-05-31] MEDS: LevETIRAcetam 500 MG/5 ML UDC ORAL LIQUID PO SCH ×2 (09:57→23:52)
[2019-05-31 11:22] VITALS: BP_SYST 132
[2019-05-31] MEDS: D5/0.45 NS 1,000 ML IV SCH (12:47)
[2019-05-31 14:08] LABS: BASOPHILS % (AUTO) 0.3 % (0.0-2.0); EOSINOPHILS % (AUTO) 0.4 % (0.0-4.0); HEMATOCRIT 34.1 % (36-54); HEMOGLOBIN 11.4 g/dL (14.0-18.0); LYMPHOCYTES # (AUTO) 3.3 K/uL (1.0-5.5); LYMPHOCYTES % (AUTO) 29.6 % (20.5-51.5); MEAN CORPUSCULAR HEMOGLOBIN 34 pg (27-31); MEAN CORPUSCULAR HGB CONC 34 % (32-36); MEAN CORPUSCULAR VOLUME 102 fL (79.0-98.0); MONOCYTES # (AUTO) 1.2 K/uL (0.0-1.0); MONOCYTES % (AUTO) 10.6 % (1.7-9.3); NEUTROPHILS # (AUTO) 6.6 K/uL (1.8-7.7); NEUTROPHILS % (AUTO) 59.1 % (40.0-70.0); PLATELET COUNT (AUTO) 68 K/uL (130-430); RED BLOOD CELL COUNT(AUTO) 3.36 MIL/uL (4.2-6.2); RED CELL DISTRIBUTION WIDTH 14.7 % (9.0-15.0); WHITE BLOOD COUNT (AUTO) 11.2 K/uL (4.8-10.8)
[2019-05-31 14:12] LABS: CHLORIDE 111 mmol/L (98-107); CREATININE 0.86 mg/dL (0.55-1.30); GLUCOSE 106 mg/dL (70-99); POTASSIUM 4.3 mmol/L (3.5-5.1); SODIUM SERUM 138 mmol/L (136-145); UREA NITROGEN, BLOOD 23 mg/dL (8-21)
[2019-05-31 14:21] LABS: GFR AFRICAN AMERICAN 117 mL/min (>90)
[2019-05-31 14:22] LABS: ANION GAP < 3 (5-15)
[2019-05-31 14:24] LABS: CALCIUM 8.6 mg/dL (8.4-11.0)
[2019-05-31 15:20] VITALS: BP_SYST 124
[2019-05-31 20:45] VITALS: BP_SYST 103
[2019-05-31] MEDS: TERAZOSIN HCL 1 MG CAPSULE (HYTRIN) PO SCH (23:08)
[2019-05-31] MEDS: CANNABIDIOL PO SCH (23:52)
[2019-06-01 00:34] VITALS: BP_SYST 111
[2019-06-01] MEDS: D5/0.45 NS 1,000 ML IV SCH ×2 (01:42→16:32)
[2019-06-01 04:15] VITALS: BP_SYST 116
[2019-06-01 06:09] LABS: BASOPHILS % (AUTO) 0.4 % (0.0-2.0); EOSINOPHILS # (AUTO) 0.1 K/uL (0.0-0.4); EOSINOPHILS % (AUTO) 0.6 % (0.0-4.0); HEMATOCRIT 29.1 % (36-54); HEMOGLOBIN 9.8 g/dL (14.0-18.0); LYMPHOCYTES # (AUTO) 3.2 K/uL (1.0-5.5); LYMPHOCYTES % (AUTO) 32.6 % (20.5-51.5); MEAN CORPUSCULAR HEMOGLOBIN 34 pg (27-31); MEAN CORPUSCULAR HGB CONC 34 % (32-36); MEAN CORPUSCULAR VOLUME 102 fL (79.0-98.0); MONOCYTES # (AUTO) 1.7 K/uL (0.0-1.0); MONOCYTES % (AUTO) 17.2 % (1.7-9.3); NEUTROPHILS # (AUTO) 4.8 K/uL (1.8-7.7); NEUTROPHILS % (AUTO) 49.2 % (40.0-70.0); PLATELET COUNT (AUTO) 78 K/uL (130-430); RED BLOOD CELL COUNT(AUTO) 2.86 MIL/uL (4.2-6.2); RED CELL DISTRIBUTION WIDTH 14.9 % (9.0-15.0); WHITE BLOOD COUNT (AUTO) 9.8 K/uL (4.8-10.8)
[2019-06-01 06:23] LABS: ALANINE AMINOTRANSFERASE 11 U/L (12-78); ALBUMIN 1.7 g/dL (3.4-4.8); ASPARTATE AMINOTRANSFERASE 18 U/L (10-37); CALCIUM 8.3 mg/dL (8.4-11.0); CHLORIDE 111 mmol/L (98-107); CREATININE 0.84 mg/dL (0.55-1.30); GLUCOSE 110 mg/dL (70-99); POTASSIUM 4.7 mmol/L (3.5-5.1); SODIUM SERUM 140 mmol/L (136-145); TOTAL BILIRUBIN 0.4 mg/dL (0.0-1.0); UREA NITROGEN, BLOOD 29 mg/dL (8-21)
[2019-06-01 06:26] LABS: ANION GAP < 3 (5-15); GFR AFRICAN AMERICAN 120 mL/min (>90)
[2019-06-01 08:00] VITALS: BP_SYST 103
[2019-06-01] MEDS: LevETIRAcetam 500 MG/5 ML UDC ORAL LIQUID PO SCH (08:46)
[2019-06-01] MEDS: MEGESTROL ACETATE 400 MG/10 ML UDC PO SCH ×2 (08:46→09:00)
[2019-06-01] MEDS: DIVALPROEX SODIUM 500 MG TABLET( DEPAKOTE) PO SCH ×2 (08:47→22:04)
[2019-06-01] MEDS: LACOSAMIDE 100 MG TABLET PO SCH ×2 (08:47→21:58)
[2019-06-01] MEDS: LORATADINE 10 MG TABLET PO SCH (08:47)
[2019-06-01] MEDS: PANTOPRAZOLE SODIUM 40 MG TAB PO SCH ×2 (08:47→21:59)
[2019-06-01] MEDS: CALCIUM CARBONATE/VITAMIN D3 1 TAB TABLET PO SCH ×2 (08:47→22:03)
[2019-06-01] MEDS: MULTIVITS,CA,MINERALS/IRON/FA 1 TABLET PO SCH (08:48)
[2019-06-01] MEDS: OXYBUTYNIN CHLORIDE 5 MG TABLET PO SCH ×3 (08:48→22:05)
[2019-06-01] MEDS: FERROUS SULFATE 325 MG TABLET.DR PO SCH (08:48)
[2019-06-01] MEDS: TAMSULOSIN HCL 0.4 MG CAP PO SCH ×2 (08:48→21:59)
[2019-06-01] MEDS: CANNABIDIOL PO SCH ×3 (08:49→22:05)
[2019-06-01] MEDS: CIPROFLOXACIN HCL 500 MG TABLET PO SCH ×2 (10:58→22:04)
[2019-06-01 11:33] VITALS: BP_SYST 125
[2019-06-01 15:26] VITALS: BP_SYST 109
[2019-06-01 20:00] VITALS: BP_SYST 101
[2019-06-01] MEDS ORDERED: levETIRAcetam 500 MG TABLET PO SCH (21:00)
[2019-06-01] MEDS: levETIRAcetam 500 MG TABLET PO SCH (21:58)
[2019-06-01] MEDS: TERAZOSIN HCL 1 MG CAPSULE (HYTRIN) PO SCH (22:03)
[2019-06-02 01:32] VITALS: BP_SYST 103
[2019-06-02] MEDS: D5/0.45 NS 1,000 ML IV SCH ×2 (05:00→21:12)
[2019-06-02 08:00] VITALS: BP_SYST 123
[2019-06-02] MEDS: MEGESTROL ACETATE 400 MG/10 ML UDC PO SCH ×2 (08:29→09:00)
[2019-06-02] MEDS: PANTOPRAZOLE SODIUM 40 MG TAB PO SCH ×2 (08:30→20:55)
[2019-06-02] MEDS: MULTIVITS,CA,MINERALS/IRON/FA 1 TABLET PO SCH (08:30)
[2019-06-02] MEDS: OXYBUTYNIN CHLORIDE 5 MG TABLET PO SCH ×4 (08:30→20:55)
[2019-06-02] MEDS: CALCIUM CARBONATE/VITAMIN D3 1 TAB TABLET PO SCH ×2 (08:30→21:00)
[2019-06-02] MEDS: LORATADINE 10 MG TABLET PO SCH (08:30)
[2019-06-02] MEDS: FERROUS SULFATE 325 MG TABLET.DR PO SCH (08:31)
[2019-06-02] MEDS: TAMSULOSIN HCL 0.4 MG CAP PO SCH ×2 (08:31→20:59)
[2019-06-02] MEDS: levETIRAcetam 500 MG TABLET PO SCH ×2 (08:31→21:00)
[2019-06-02] MEDS: LACOSAMIDE 100 MG TABLET PO SCH ×2 (08:31→20:56)
[2019-06-02] MEDS: DIVALPROEX SODIUM 500 MG TABLET( DEPAKOTE) PO SCH ×2 (08:31→20:56)
[2019-06-02] MEDS: CANNABIDIOL PO SCH ×2 (09:00→21:00)
[2019-06-02] MEDS ORDERED: CIPROFLOXACIN HCL 500 MG TABLET PO ONE (11:30)
[2019-06-02] MEDS: CIPROFLOXACIN HCL 500 MG TABLET PO SCH ×2 (11:56→20:59)
[2019-06-02 12:00] VITALS: BP_SYST 101
[2019-06-02 16:55] VITALS: BP_SYST 127
[2019-06-02] MEDS: TERAZOSIN HCL 1 MG CAPSULE (HYTRIN) PO SCH (20:59)
[2019-06-03 00:26] VITALS: BP_SYST 116
[2019-06-03 07:00] LABS: BASOPHILS % (AUTO) 0.3 % (0.0-2.0); EOSINOPHILS % (AUTO) 0.6 % (0.0-4.0); HEMATOCRIT 27.7 % (36-54); HEMOGLOBIN 9.4 g/dL (14.0-18.0); MEAN CORPUSCULAR HEMOGLOBIN 35 pg (27-31); MEAN CORPUSCULAR HGB CONC 34 % (32-36); MEAN CORPUSCULAR VOLUME 102 fL (79.0-98.0); MONOCYTES # (AUTO) 1.5 K/uL (0.0-1.0); MONOCYTES % (AUTO) 19.4 % (1.7-9.3); NEUTROPHILS % (AUTO) 39.7 % (40.0-70.0); PLATELET COUNT (AUTO) 126 K/uL (130-430); RED BLOOD CELL COUNT(AUTO) 2.73 MIL/uL (4.2-6.2); RED CELL DISTRIBUTION WIDTH 14.9 % (9.0-15.0); WHITE BLOOD COUNT (AUTO) 7.6 K/uL (4.8-10.8)
[2019-06-03 07:21] LABS: INR 1.2 (0.80-1.20); PROTHROMBIN TIME 11.9 SECS (9.5-12.5)
[2019-06-03 07:42] LABS: ALBUMIN 1.6 g/dL (3.4-4.8); CREATININE 0.87 mg/dL (0.55-1.30); POTASSIUM 4.3 mmol/L (3.5-5.1); TOTAL BILIRUBIN 0.3 mg/dL (0.0-1.0)
[2019-06-03] MEDS ORDERED: SIMETHICONE 40 MG/0.6 ML ML ONE (07:47)
[2019-06-03 08:10] VITALS: BP_SYST 98
[2019-06-03] MEDS: OXYBUTYNIN CHLORIDE 5 MG TABLET PO SCH ×3 (08:18→22:07)
[2019-06-03] MEDS: LORATADINE 10 MG TABLET PO SCH (08:18)
[2019-06-03] MEDS: DIVALPROEX SODIUM 500 MG TABLET( DEPAKOTE) PO SCH ×2 (08:18→22:05)
[2019-06-03] MEDS: FERROUS SULFATE 325 MG TABLET.DR PO SCH (08:19)
[2019-06-03] MEDS: levETIRAcetam 500 MG TABLET PO SCH ×2 (08:19→22:05)
[2019-06-03] MEDS: PANTOPRAZOLE SODIUM 40 MG TAB PO SCH ×2 (08:19→22:04)
[2019-06-03] MEDS: MEGESTROL ACETATE 400 MG/10 ML UDC PO SCH (08:19)
[2019-06-03] MEDS: CANNABIDIOL PO SCH ×2 (08:19→21:00)
[2019-06-03] MEDS: CALCIUM CARBONATE/VITAMIN D3 1 TAB TABLET PO SCH ×2 (08:19→22:05)
[2019-06-03] MEDS: TAMSULOSIN HCL 0.4 MG CAP PO SCH ×2 (08:19→22:04)
[2019-06-03] MEDS: MULTIVITS,CA,MINERALS/IRON/FA 1 TABLET PO SCH (08:20)
[2019-06-03] MEDS: LACOSAMIDE 100 MG TABLET PO SCH ×2 (08:20→22:05)
[2019-06-03] MEDS: MIDAZOLAM HCL 5 MG/5 ML VIAL ONE ×2 (09:07→09:11)
[2019-06-03] MEDS: fentaNYL CITRATE/PF 100 MCG/2 ML AMP ONE ×2 (09:07→09:11)
[2019-06-03] MEDS ORDERED: BENZOCAINE 20% 0.5mL UD SPRAY MM ONE (09:11)
[2019-06-03] MEDS: CIPROFLOXACIN HCL 500 MG TABLET PO SCH ×2 (10:30→22:07)
[2019-06-03] MEDS: D5/0.45 NS 1,000 ML IV SCH ×2 (10:54→15:14)
[2019-06-03 12:30] VITALS: BP_SYST 102
[2019-06-03 16:18] VITALS: BP_SYST 92
[2019-06-03] MEDS: TERAZOSIN HCL 1 MG CAPSULE (HYTRIN) PO SCH (22:07)
[2019-06-04 01:38] VITALS: BP_SYST 108
[2019-06-04 08:00] VITALS: BP_SYST 106
[2019-06-04] MEDS: MEGESTROL ACETATE 400 MG/10 ML UDC PO SCH ×2 (09:00→09:13)
[2019-06-04] MEDS: CALCIUM CARBONATE/VITAMIN D3 1 TAB TABLET PO SCH ×3 (09:00→21:20)
[2019-06-04] MEDS: TAMSULOSIN HCL 0.4 MG CAP PO SCH ×2 (09:14→21:19)
[2019-06-04] MEDS: levETIRAcetam 500 MG TABLET PO SCH ×2 (09:14→21:20)
[2019-06-04] MEDS: CANNABIDIOL PO SCH ×2 (09:14→21:21)
[2019-06-04] MEDS: LORATADINE 10 MG TABLET PO SCH (09:14)
[2019-06-04] MEDS: CIPROFLOXACIN HCL 500 MG TABLET PO SCH ×2 (09:14→21:21)
[2019-06-04] MEDS: MULTIVITS,CA,MINERALS/IRON/FA 1 TABLET PO SCH (09:14)
[2019-06-04] MEDS: DIVALPROEX SODIUM 500 MG TABLET( DEPAKOTE) PO SCH ×2 (09:14→21:19)
[2019-06-04] MEDS: LACOSAMIDE 100 MG TABLET PO SCH ×2 (09:14→21:21)
[2019-06-04] MEDS: OXYBUTYNIN CHLORIDE 5 MG TABLET PO SCH ×3 (09:14→21:19)
[2019-06-04] MEDS: PANTOPRAZOLE SODIUM 40 MG TAB PO SCH ×2 (09:15→21:20)
[2019-06-04] MEDS: FERROUS SULFATE 325 MG TABLET.DR PO SCH (09:15)
[2019-06-04 12:27] VITALS: BP_SYST 105
[2019-06-04] MEDS: D5/0.45 NS 1,000 ML IV SCH ×2 (15:39→22:38)
[2019-06-04 16:02] VITALS: BP_SYST 107
[2019-06-04 20:00] VITALS: BP_SYST 116
[2019-06-04] MEDS: TERAZOSIN HCL 1 MG CAPSULE (HYTRIN) PO SCH (21:20)
[2019-06-04 21:45] VITALS: BP_SYST 132
[2019-06-05 02:09] VITALS: BP_SYST 107
[2019-06-05 08:11] VITALS: BP_SYST 103
[2019-06-05] MEDS: MEGESTROL ACETATE 400 MG/10 ML UDC PO SCH ×2 (09:00→09:14)
[2019-06-05] MEDS: LACOSAMIDE 100 MG TABLET PO SCH (09:02)
[2019-06-05] MEDS: levETIRAcetam 500 MG TABLET PO SCH (09:04)
[2019-06-05] MEDS: DIVALPROEX SODIUM 500 MG TABLET( DEPAKOTE) PO SCH (09:05)
[2019-06-05] MEDS: PANTOPRAZOLE SODIUM 40 MG TAB PO SCH (09:07)
[2019-06-05] MEDS: OXYBUTYNIN CHLORIDE 5 MG TABLET PO SCH ×2 (09:07→15:20)
[2019-06-05] MEDS: LORATADINE 10 MG TABLET PO SCH (09:08)
[2019-06-05] MEDS: TAMSULOSIN HCL 0.4 MG CAP PO SCH (09:08)
[2019-06-05] MEDS: FERROUS SULFATE 325 MG TABLET.DR PO SCH (09:09)
[2019-06-05] MEDS: CIPROFLOXACIN HCL 500 MG TABLET PO SCH (09:10)
[2019-06-05] MEDS: CALCIUM CARBONATE/VITAMIN D3 1 TAB TABLET PO SCH (09:11)
[2019-06-05] MEDS: MULTIVITS,CA,MINERALS/IRON/FA 1 TABLET PO SCH (09:11)
[2019-06-05] MEDS: CANNABIDIOL PO SCH (09:12)
[2019-06-05 12:00] VITALS: BP_SYST 106
[2019-06-05 15:09] VITALS: BP_SYST 106
[2019-06-05] MEDS ORDERED: PRO40 PO (15:15)
[2019-06-05] MEDS ORDERED: L.RH1CAP PO (15:16)
[2019-06-05] MEDS ORDERED: CIPR-211 PO (15:16)
[2019-06-05 16:00] VITALS: BP_SYST 106
[2019-06-05 16:33] VITALS: BP_SYST 91
== END 2019-06-05 16:25 | disposition home or self-care (01) | DRG 871 ==
LOC: SED 10:02 → STU 12:48
PROVIDERS: ADMIT Internal Medicine; ATTEND Internal Medicine
PROC: 0DB68ZX Excision of Stomach, Via Natural or Artificial Opening Endoscopic, Diagnostic (ICD-10-PCS; 2019-06-03)
PROC: 0DB98ZX Excision of Duodenum, Via Natural or Artificial Opening Endoscopic, Diagnostic (ICD-10-PCS; principal; 2019-06-03 09:30)
DX: A41.9 Sepsis, unspecified organism (principal); E43 Unspecified severe protein-calorie malnutrition; D61.818 Other pancytopenia; N13.6 Pyonephrosis; E87.0 Hyperosmolality and hypernatremia; G40.909 Epilepsy, unspecified, not intractable, without status epilepticus; N32.89 Other specified disorders of bladder; N40.0 Benign prostatic hyperplasia without lower urinary tract symptoms; R13.10 Dysphagia, unspecified; B96.20 Unspecified Escherichia coli [E. coli] as the cause of diseases classified elsewhere; E86.0 Dehydration; R31.9 Hematuria, unspecified; E87.6 Hypokalemia; D69.6 Thrombocytopenia, unspecified; K22.4 Dyskinesia of esophagus; Z88.8 Allergy status to other drugs, medicaments and biological substances
CPT/HCPCS: 36415; 43239; 71045; 74018; 74240-TC; 76700-TC; 80048; 80053; 80074; 81000-TC; 82607; 82746; 83540-TC; 83550-TC; 83605; 83615-TC; 83690-TC; 83735-TC; 84439; 84443-TC; 85025; 85044-TC; 85384-TC; 85610-TC; 85651-TC; 85730-TC; 86140; 87040-TC; 87086; 87186-TC; 88305; 88312; 88313; 92610-GN; 93005; 96365; 96367; 97110-GP; 97116-GP; 97530-GP; 99285; G0378; J0696; J2250; J2543; J3010; J3480; J7042; J7050; J7060; J7120